=== PATIENT | male | born 1985 | race Native Hawaiian/Other Pacific Islander ===

== ENCOUNTER 2018-01-05 12:19 | Emergency (ER) | payer OTHER ==
[~2018-01-05] VITALS: Ht 182.9 cm; Wt 83.9 kg
[2018-01-05 12:59] LABS: PLATELET COUNT 272 K/uL (142-355)
== END 2018-01-05 13:51 | disposition home or self-care (01) ==
LOC: ED 12:19
PROVIDERS: Family Medicine
DX: R10.9 Unspecified abdominal pain (principal); K29.70 Gastritis, unspecified, without bleeding; K59.00 Constipation, unspecified
CPT/HCPCS: 80053; 85027; 99283